=== PATIENT | male | born 1985 | race African-American/Black ===

== ENCOUNTER 2019-02-28 12:15 | Emergency (ER) | payer SELFPAY ==
[~2019-02-28] VITALS: Ht 182.9 cm; Wt 76.7 kg
[2019-02-28 12:34] VITALS: BP 109/59
[2019-02-28] MEDS ORDERED: PENI500T PO (13:02)
--- NOTE | 2019-02-28 13:03 | PHYS DOC ---
Past History Past Medical History: Migraines Past Surgical History: No Surgical History Alcohol Use: None Drug Use: None Adult General Chief Complaint Chief Complaint: COUGH HPI HPI Patient is a 34 year old male who presents with complaint of runny nose, cough, and dental pain. Patient states that his dental pain started over the past 3 days. States that he has history of dental decay and has had previous problems with infection of the left side of his jaw due to dental decay. States that he was last treated 6 months ago. Has not seen a dentist since his previous visit. States he started to have pain and mild swelling along the left jaw with tenderness over the left rear molar of his jaw. Has started having runny nose and cough over the past 2 days. Patient has an son he started having symptoms 5 days ago and thinks he may have caught a cold from him. His primary concern however is his dental pain as he does feel he may need to be on an anabiotic for treatment. Review of Systems Review of Systems Constitutional: Denies fever or chills [] Eyes: Denies change in visual acuity, redness, or eye pain [] HENT: Runny nose, tooth pain, sore throat[] Respiratory: Cough, denies shortness of breath[] Cardiovascular: Denies chest pain or edema[] GI: Denies abdominal pain, nausea, vomiting, bloody stools or diarrhea [] : Denies dysuria or hematuria [] Musculoskeletal: Denies back pain or joint pain [] Integument: Denies rash or skin lesions [] Neurologic: Denies headache, focal weakness or sensory changes [] All other systems were reviewed and found to be within normal limits, except as documented in this note. Allergies Allergies Allergies Coded Allergies Type Severity Reaction Last Updated Verified No Known Drug Allergies 02/28/19 No Physical Exam Physical Exam Constitutional: Well developed, well nourished, no acute distress, non-toxic appearance. [] HENT: Normocephalic, atraumatic, bilateral external ears normal, oropharynx moist, significant tooth decay of multiple teeth, tenderness over tooth #17, no gingival fluctuance, no oral exudates, nose normal. [] Eyes: PERRLA, EOMI, conjunctiva normal, no discharge. [] Neck: Normal range of motion, no tenderness, supple, no stridor. [] Cardiovascular:Heart rate regular rhythm, no murmur [] Lungs & Thorax: Bilateral breath sounds clear to auscultation [] Abdomen: Bowel sounds normal, soft, no tenderness, no masses, no pulsatile masses. [] Skin: Warm, dry, no erythema, no rash. [] Back: No tenderness, no CVA tenderness. [] Extremities: No tenderness, no cyanosis, no clubbing, ROM intact, no edema. [] Neurologic: Alert and oriented X 3, normal motor function, normal sensory function, no focal deficits noted. [] Current Patient Data Vital Signs Vital Signs Date Time Temp Pulse Resp B/P (MAP) Pulse Ox O2 Delivery O2 Flow Rate FiO2 02/28/19 12:34 98.1 68 16 98 Room Air 02/28/19 12:33 109/59 (76) Lab Results Not performed EKG EKG Not performed[] Radiology/Procedures Radiology/Procedures Not performed[] Course & Med Decision Making Course & Med Decision Making Pertinent Labs and Imaging studies reviewed. (See chart for details) []Patient has tenderness of tooth #17 with no surrounding fluctuance. Apical abscess cannot be ruled out. Patient started on penicillin for treatment. Will continue on 10 day course for treatment. Advised follow-up with dentist in 1 week for reevaluation and return to emergency department for any worsening symptoms. Patient was understanding and in agreement with treatment plan. Dragon Disclaimer Dragon Disclaimer This electronic medical record was generated, in whole or in part, using a voice recognition dictation system. Departure Departure: Impression: Primary Impression: Pain, dental Additional Impression: Upper respiratory infection Disposition: 01 HOME, SELF-CARE Condition: IMPROVED Patient Instructions: Dental Pain, Upper Respiratory Infection, Adult Additional Instructions: Follow-up with your dentist in 1 week for reevaluation. Return to emergency department for any worsening symptoms. Scripts Penicillin V Potassium (PENICILLIN V POTASSIUM) 500 Mg Tablet 1 TAB PO QID, #40 TAB Prov: YIN CRUZ MD 02/28/19 Problem Qualifiers Additional Impression: Upper respiratory infection URI type: unspecified URI Qualified Codes: J06.9 - Acute upper respiratory infection, unspecified YIN CRUZ MD Feb 28, 2019 13:03
[2019-02-28] MEDS ORDERED: PENICILLIN V K 250 MG TABLET. PO ONE (13:30)
== END 2019-02-28 13:11 | disposition home or self-care (01) ==
LOC: ER 12:15
DX: J06.9 Acute upper respiratory infection, unspecified (principal); K08.89 Other specified disorders of teeth and supporting structures; K02.9 Dental caries, unspecified; G43.909 Migraine, unspecified, not intractable, without status migrainosus
CPT/HCPCS: 99283

== ENCOUNTER 2019-04-23 05:38 | Emergency (ER) | payer SELFPAY ==
[~2019-04-23] VITALS: Ht 185.4 cm; Wt 81.6 kg
[~2019-04-23 05:38] MED LIST: PENI500T PO
[2019-04-23 05:45] VITALS: BP 116/64
[2019-04-23] MEDS ORDERED: CLIN300C8 PO (06:13)
[2019-04-23] MEDS ORDERED: ACET-704 PO (06:13)
[2019-04-23] MEDS ORDERED: LIDO15SO2 MM (06:13)
--- NOTE | 2019-04-23 06:13 | PHYS DOC ---
Past History Past Medical History: Migraines Past Surgical History: No Surgical History Alcohol Use: None Drug Use: None Adult General Chief Complaint Chief Complaint: DENTAL PROBLEM HPI HPI Patient is a 34-year-old male who presents with complaint of left lower dental pain that started a couple days ago but states the pain is gotten a lot worse over the last 24 hours. He describes pain as a very dull throbbing pain and rates it as severe. Patient states that he has not yet seen a dentist. He denies any fever, nausea or vomiting. He states that nothing is improving the pain.[] Review of Systems Review of Systems Constitutional: Denies fever or chills [] HENT: Positive dental pain[] Respiratory: Denies cough or shortness of breath [] Cardiovascular: No additional information not addressed in HPI [] Allergies Allergies Allergies Coded Allergies Type Severity Reaction Last Updated Verified No Known Drug Allergies 02/28/19 No Physical Exam Physical Exam Constitutional: Well developed, well nourished, no acute distress, non-toxic appearance. [] HENT: Normocephalic, atraumatic, dentition is poor with widespread dental caries with severe erosion to the left lower canine, premolar and first molar[] Eyes: PERRLA, EOMI, conjunctiva normal, no discharge. [] Neck: Normal range of motion, no tenderness, supple, no stridor. [] Cardiovascular:Heart rate regular rhythm, no murmur [] Lungs & Thorax: Bilateral breath sounds clear to auscultation [] Current Patient Data Vital Signs Vital Signs Date Time Temp Pulse Resp B/P (MAP) Pulse Ox O2 Delivery O2 Flow Rate FiO2 04/23/19 05:45 98.8 65 14 98 Room Air EKG EKG [] Radiology/Procedures Radiology/Procedures [] Course & Med Decision Making Course & Med Decision Making Pertinent Labs and Imaging studies reviewed. (See chart for details) [] Dragon Disclaimer Dragon Disclaimer This electronic medical record was generated, in whole or in part, using a voice recognition dictation system. Departure Departure: Impression: Primary Impression: Pain due to dental caries Disposition: HOME, SELF-CARE Condition: STABLE Referrals: PCP,NO (PCP) Patient Instructions: Dental Caries, Dental Pain Scripts Lidocaine HCl (Lidocaine HCl Viscous) 15 Ml Solution 1 ML MM Q2HR PRN for dental pain, #100 ML Prov: HERI SINGLETON Jr. DO 04/23/19 Clindamycin Hcl (CLINDAMYCIN HCL) 300 Mg Capsule 1 CAP PO QID for infection, #40 CAP Prov: HERI SINGLETON Jr. DO 04/23/19 Acetaminophen With Codeine (TYLENOL WITH CODEINE #3 TABLET) 1 Each Tablet 1 TAB PO Q4-6HRS PRN for PAIN, #15 TAB Prov: HERI SINGLETON Jr. DO 04/23/19 HERI SINGLETON Jr. DO Apr 23, 2019 06:13
[2019-04-23] MEDS ORDERED: CLINDAMYCIN HCL 150 MG CAPSULE ONE (06:19)
[2019-04-23] MEDS ORDERED: ACETAMINOPHEN/CODEINE 300/30MG TABLET ONE (06:20)
[2019-04-23] MEDS ORDERED: ACETAMINOPHEN/CODEINE 300/30MG TABLET PO ONE (06:30)
[2019-04-23] MEDS ORDERED: CLINDAMYCIN HCL 150 MG CAPSULE PO ONE (06:30)
== END 2019-04-23 06:26 | disposition home or self-care (01) ==
LOC: ER 05:38
DX: K02.9 Dental caries, unspecified (principal); G43.909 Migraine, unspecified, not intractable, without status migrainosus
CPT/HCPCS: 99283

== ENCOUNTER 2019-10-23 13:01 | Emergency (ER) | payer SELFPAY ==
[~2019-10-23] VITALS: Ht 185.4 cm; Wt 76.7 kg
[~2019-10-23 13:01] MED LIST changes: +ACET-704 PO; +CLIN300C8 PO; +LIDO15SO2 MM
[2019-10-23 13:10] VITALS: BP 131/62
[2019-10-23] MEDS ORDERED: AMOX500T PO (13:46)
[2019-10-23] MEDS ORDERED: MELO7.5T29 PO (13:46)
[2019-10-23] MEDS ORDERED: FLUC100T7 PO (13:46)
--- NOTE | 2019-10-23 13:46 | PHYS DOC ---
Past History Past Medical History: Migraines Past Surgical History: No Surgical History Smoking: Cigarettes Alcohol Use: None Drug Use: None Adult General Chief Complaint Chief Complaint: DENTAL PROBLEM HPI HPI Patient is a 34-year-old male presents with nasal congestion, throat irritation and mouth pain for approximately the past week. Patient reports it is getting worse over time. He had multiple dental extractions performed a month to month and a half ago and has follow-up with the dentist tomorrow. He noted a white plaque on his tongue. No difficulty breathing. He had a fever last week, no recent fever. Swallowing makes the discomfort worse. Symptoms are moderate in intensity.[] Review of Systems Review of Systems Constitutional: Denies fever or chills [] Eyes: Denies change in visual acuity, redness, or eye pain [] HENT: See history of present illness[] Respiratory: Denies cough or shortness of breath [] Cardiovascular: No chest pain or palpitations[] GI: Denies abdominal pain, nausea, vomiting, bloody stools or diarrhea [] : Denies dysuria or hematuria [] Musculoskeletal: Denies back pain or joint pain [] Integument: Denies rash or skin lesions [] Neurologic: Denies headache, focal weakness or sensory changes [] Endocrine: Denies polyuria or polydipsia [] All other systems were reviewed and found to be within normal limits, except as documented in this note. Allergies Allergies Allergies Coded Allergies Type Severity Reaction Last Updated Verified No Known Drug Allergies 02/28/19 No Physical Exam Physical Exam Constitutional: Well developed, well nourished, no acute distress, non-toxic appearance. [] HENT: Normocephalic, atraumatic, bilateral external ears normal, oropharynx moist, no oral exudates, whitish plaque on the left buccal mucosa. Diffuse oral tenderness. There is no drainable abscess appreciated. Nose normal. [] Eyes: PERRLA, EOMI, conjunctiva normal, no discharge. [] Neck: Normal range of motion, no tenderness, supple, no stridor. No cervical lymphadenopathy[] Cardiovascular:Heart rate regular rhythm, no murmur [] Lungs & Thorax: Bilateral breath sounds clear to auscultation [] Abdomen: Not examined[] Skin: Warm, dry, no erythema, no rash. [] Back: No tenderness, no CVA tenderness. [] Extremities: No tenderness, no cyanosis, no clubbing, ROM intact, no edema. [] Neurologic: Alert and oriented X 3, normal motor function, normal sensory function, no focal deficits noted. [] Psychologic: Affect normal, judgement normal, mood normal. [] EKG EKG [] Radiology/Procedures Radiology/Procedures [] Course & Med Decision Making Course & Med Decision Making Pertinent Labs and Imaging studies reviewed. (See chart for details) Emergency department course: Patient arrived, was placed in bed, and tolerated exam well. Findings and plan were discussed with the patient voiced understanding. All questions were answered. He was discharged in improved condition. Medical decision making: We'll cover patient for thrush, will also treat for possibility of oral/dental infection. Patient has close follow-up. There is no evidence of Fredis exam. Nontoxic patient. No evidence of meningitis or encephalitis.[] Dragon Disclaimer Dragon Disclaimer This electronic medical record was generated, in whole or in part, using a voice recognition dictation system. Departure Departure: Impression: Primary Impression: Thrush Additional Impression: Oral pain Disposition: 01 HOME, SELF-CARE Condition: IMPROVED Referrals: PCP,NO (PCP) Patient Instructions: Dental Pain, Thrush, Adult Additional Instructions: Keep your appointment with the dentist tomorrow. Follow-up with your regular doctor in 2 days. If you do not have regular doctor list of local clinics will be provided. Take the medication as prescribed. Return to the ER if worsening discomfort, worsening difficulty swallowing, or any other concerns Scripts Amoxicillin (AMOXICILLIN) 500 Mg Tablet 500 MG PO TID for dental pain/infection for 10 Days, #30 TAB Prov: ELLIE OSUNA DO 10/23/19 Fluconazole (DIFLUCAN) 100 Mg Tablet 100 MG PO DAILY for thrush for 10 Days, #10 TAB Prov: ELLIE OSUNA DO 10/23/19 Meloxicam (MELOXICAM) 7.5 Mg Tablet 7.5 MG PO DAILY for PAIN, #20 TAB Prov: ELLIE OSUNA DO 10/23/19 Problem Qualifiers ELLIE OSUNA DO Oct 23, 2019 13:46
== END 2019-10-23 13:50 | disposition home or self-care (01) ==
LOC: ER 13:01
DX: B37.0 Candidal stomatitis (principal); G43.909 Migraine, unspecified, not intractable, without status migrainosus; F17.210 Nicotine dependence, cigarettes, uncomplicated
CPT/HCPCS: 99283

== ENCOUNTER 2021-07-19 16:27 | Emergency (ER) | payer SELFPAY ==
[~2021-07-19] VITALS: Ht 185.4 cm; Wt 76.7 kg
[~2021-07-19 16:27] MED LIST changes: +AMOX500T PO; -CLIN300C8 PO; +CLIN300C9 PO; +FLUC100T7 PO; -LIDO15SO2 MM; +LIDO20SO10 MM; +MELO7.5T29 PO
[2021-07-19] MEDS ORDERED: AMOX1TAB61 PO (16:52)
[2021-07-19] MEDS ORDERED: HYDR-2155 PO (16:52)
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
== END 2021-07-19 16:59 | disposition home or self-care (01) ==
LOC: ER 16:27
DX: K02.9 Dental caries, unspecified (principal); G43.909 Migraine, unspecified, not intractable, without status migrainosus; F17.210 Nicotine dependence, cigarettes, uncomplicated
CPT/HCPCS: 99283